=== PATIENT | male | born 1970 | race Two or more races ===

== ENCOUNTER 2025-02-11 13:29 | Inpatient (IN) | payer MEDICAID ==
[~2025-02-11] VITALS: Ht 180.3 cm; Wt 65.0 kg
--- NOTE | 2025-02-11 17:56 | Physician Documentation ---
History of Present Illness ~ Chief Complaint: Wound Stated Complaint: R FOOT PAIN Time Seen by MD: 23:13 HPI This is a 54-year-old male with a history of diabetes who presents with a wound to his right 5th toe present for proximally one-week patient reports that he initially stubbed his toe and the areas be come more painful and swollen over the last week. Patient reports no subjective fever. Patient reports no other acute symptoms or concerns. History as above. Medication Reconciliation Allergies: Coded Allergies: No Known Allergies (Unverified , 02/11/25) Scheduled Gabapentin (Gabapentin), 1 TAB PO BID, (Reported) Metformin Hcl* (Metformin ER*), 1 TAB PO BID, (Reported) Miscellaneous Medications Atorvastatin Calcium (Atorvastatin Calcium), (Reported) Insulin Aspart (Novolog), SQ, (Reported) Insulin Glargine,Hum.rec.anlog* (Lantus*), SQ, (Reported) [place] Carbonate ([place] Carbonate), (Reported) Lumateperone Tosylate (Caplyta), (Reported) Review of Systems ROS As stated above in the HPI, otherwise all systems are reviewed and negative. Physical Exam Vital Signs: Temperature: 97.7, Source: Temporal, Heart Rate: 86, Respiratory Rate: 16, BP: 123/81, Pulse Oximetry: 100, Weight: 65.050 Physical Exam General: Patient is awake, alert, oriented x4 in no acute distress Head: Normocephalic and atraumatic. Eyes: Conjunctival normal. EOMI. PERRL. ENT: Mucous membranes moist. Neck: Supple, trachea is midline. Chest: Clear to auscultation bilaterally without rales, rhonchi, or wheezes. There is no accessory muscle use or retractions. Cardiac: RRR without murmurs, gallops, or rubs. Abd: Soft, nondistended, nontender, with normoactive bowel sounds. No guarding, rebound, or rigidity. Extremities: Normal strength. Normal range of motion. Significant infection to patient's right 5th digit with associated ecchymosis, purulent drainage and cellulitis to the mid foot. Progress Results/Orders Results/Orders Orders - TAIWO IZAGUIRRE MD Page Hospitalist (02/11/25 23:19) Fill Out Med Reconciliation (02/11/25 23:19) Ct Lower Extremity (02/11/25 23:19) Vancomycin/Ns 1 Gm Add-[place] (Vancomyc (02/12/25 00:05) Completed Orders - TAIWO IZAGUIRRE MD Ceftriaxone/H5r-Ragcxeta 1gm (Rocephin 1 (02/11/25 23:20) Vancomycin Inj (Vancomycin Inj) (02/11/25 23:18) Normal Saline 1000ml (0.9% Sodium Chlori (02/11/25 23:20) Ct Lower Extremity (02/11/25 23:19) Iohexol 300mg/Ml 100ml Inj. (Omnipaque-3 (02/11/25 23:35) Medications Received in ER Medications (Trade) Dose Ordered Sig/Elliott Route PRN Reason Start Time Stop Time Status Last Admin Dose Admin Ceftriaxone Sodium 50 ml @ 100 mls/hr ONCE ONCE IV 02/11/25 23:20 02/11/25 23:49 DC 02/12/25 00:10 100 MLS/HR Sodium Chloride 1,000 ml @ 1,000 mls/hr ONCE ONCE IV 02/11/25 23:20 02/12/25 00:19 DC 02/12/25 00:11 1,000 MLS/HR Vancomycin HCl 250 ml @ 166 mls/hr ONCE ONCE IV 02/12/25 00:05 02/12/25 01:35 02/12/25 00:45 166 MLS/HR Vital Signs 02/11/25 02/11/25 02/11/25 02/11/25 13:46 22:13 23:23 23:25 Temp 97.7 98.3 Pulse 86 99 89 Resp 16 20 18 16 B/P (MAP) 123/81 159/86 (110) Pulse Ox 100 99 100 02/12/25 01:01 Pulse 92 Resp 16 B/P (MAP) 153/76 (101) Pulse Ox 100 Laboratory Tests Test 02/11/25 19:10 White Blood Count 10.5 Red Blood Count 4.44 L Hemoglobin 13.8 L Hematocrit 39.6 L Mean Corpuscular Volume 89.2 Mean Corpuscular Hemoglobin 31.2 H Mean Corpuscular Hemoglobin Concent 35.0 Red Cell Distribution Width 13.8 Platelet Count 366 Mean Platelet Volume 6.1 L Neutrophils (%) (Auto) 86.7 H Lymphocytes (%) (Auto) 6.6 L Monocytes (%) (Auto) 5.3 Eosinophils (%) (Auto) 1.0 Basophils (%) (Auto) 0.4 Neutrophils # (Auto) 9.1 H Lymphocytes # (Auto) 0.7 L Monocytes # (Auto) 0.6 Eosinophils # (Auto) 0.1 Basophils # (Auto) 0.0 CBC Comment Sodium Level 136 Potassium Level 3.7 Chloride Level 99 Carbon Dioxide Level 29.8 Anion Gap 7 L Blood Urea Nitrogen 9 Creatinine 1.23 H Estimated GFR/1.73 m2 61 BUN/Creatinine Ratio 7.3 L Glucose Level 190 H Hemoglobin A1c 7.4 H Calcium Level 9.6 Albumin 3.5 Procalcitonin 0.06 Chemistry Comments EKG/XRAY/CT/US/VASC/MRI Bone/Soft Tissue X-Ray (Ext.) : Additional Comment Exam: FOOT, COMPLETE (3VW MIN) Indication: FOOT PAIN RIGHT Technique: DI FOOT, COMPLETE (3VW MIN)FOOT CPLT Comparison: None FINDINGS/IMPRESSION: No radiographic evidence for acute fracture or dislocation. Dorsal right foot soft tissue edema. Wcyo-ky-flprhydp degenerate changes 1st MTP joint. Mild degenerate changes of the PIP and D IP joints. Atherosclerotic calcification disease. Medical Decision Making Findings Patient presented to the emergency room with toe pain as per HPI. Differentials include but are not limited to fractures, abscess, osteomyelitis, sepsis, cellulitis therefore emergent labs and imaging indicated. Labs are reassuring however patient's physical exam is concerning given patient's history of diabetes consider very high risk for amputation. I do not believe he would do well on outpatient basis therefore IV antibiotics initiated and CT scan ordered. Departure Admitted to Inpatient Unit: yes, to hospitalist Impression: Primary Impression: Wound cellulitis Additional Impressions: Wound abscess Diabetes Condition: Guarded Referrals: NO PRIMARY CARE PROVIDER (PCP) Signature Scribe Signature: No scribe Attestation: The note accurately reflects work and decisions made by me.Taiwo Izaguirre MD 02/11/25 23:26 CHARLEY DEY Feb 11, 2025 17:56 TAIWO IZAGUIRRE MD Feb 11, 2025 23:26
--- NOTE | 2025-02-11 18:27 | RADIOLOGY REPORT ---
Indication: FOOT PAIN RIGHT Technique: DI FOOT, COMPLETE (3VW MIN)FOOT CPLT Comparison: None FINDINGS/IMPRESSION: No radiographic evidence for acute fracture or dislocation. Dorsal right foot soft tissue edema. Qggf-cd-fgpmtmnu degenerate changes 1st MTP joint. Mild degenerate changes of the PIP and D IP joint s. Atherosclerotic calcification disease.
[2025-02-11 19:25] LABS: MEAN PLATELET VOLUME 6.1 FL (7.4-10.4); RED CELL DISTRIBUTION WIDTH 13.8 % (11.5-14.5)
[2025-02-11 19:30] LABS: CREATININE 1.23 MG/DL (0.60-1.10); TOTAL CARBON DIOXIDE 29.8 MMOL/L (24-32); eCRCL 62 ML/MIN; eGFR 61 ML/MIN
[2025-02-11] MEDS ORDERED: vancomycin inj 1,000 MG in normal saline 250ml IV soln 250 ML IV STA (23:18)
[2025-02-11] MEDS ORDERED: iohexol 300mg/ml 100ml inj. ONE (23:35)
[2025-02-12] VITALS (7 sets, daily range): BP systolic 127–172; BP diastolic 63–99; PULSE 81–92; RESP 15–22; TEMP 97.5–99.3; O2SAT 97–100
[2025-02-12] MEDS: CefTRIAXone/D5W-Rocephin 1gm 50 ML IV ONE (00:10)
[2025-02-12] MEDS: normal saline 1000ml 1,000 ML IV ONE (00:11)
[2025-02-12] MEDS ORDERED: magnesium Cl slow-release 64mg tablet PO PRN (00:45)
[2025-02-12] MEDS ORDERED: magnesium sulf-water 2g/50mL 50 ML IV PRN (00:45)
[2025-02-12] MEDS ORDERED: magnesium sulf-water 4G/100mL 100 ML IV PRN (00:45)
[2025-02-12] MEDS ORDERED: ondansetron/PF 4mg/2ml inj IV PRN (00:45)
[2025-02-12] MEDS ORDERED: mag hydrox/Alum hydrox/simeth 30ml oral suspension PO PRN (00:45)
[2025-02-12] MEDS ORDERED: potassium Cl 40MEQ/1/2NS 520ml 520 ML IV PRN (00:45)
[2025-02-12] MEDS ORDERED: potassium Cl 20 mEq SR tablet PO PRN ×2 (00:45)
[2025-02-12] MEDS: vancomycin/NS 1 GM ADD-VANTAGE 250 ML IV ONE (00:45)
[2025-02-12] MEDS ORDERED: METF-900 PO (01:01)
[2025-02-12] MEDS ORDERED: LITH300T5 PO (01:01)
[2025-02-12] MEDS ORDERED: ATOR40TA72 (01:01)
[2025-02-12] MEDS ORDERED: LANTUS SQ (01:01)
[2025-02-12] MEDS ORDERED: GABA-1555 PO (01:01)
[2025-02-12] MEDS ORDERED: NOVLG SQ (01:01)
[2025-02-12] MEDS ORDERED: LUMA21CA PO (01:01)
[2025-02-12] MEDS: CefTRIAXone/D5W-Rocephin 1gm 50 ML IV SCH ×2 (01:45→23:49)
[2025-02-12 02:19] LABS: LEUKOCYTE ESTERASE ,URINE MODERATE (Neg); NITRITES, URINE NEGATIVE (Neg); OCCULT BLOOD,URINE TRACE-INTACT (Neg)
[2025-02-12 02:21] LABS: URINE AMPHETAMINE SCREEN POSITIVE (Neg); URINE BARBITUATE SCREEN NEGATIVE (Neg); URINE BENZODIAZEPINES SCREEN NEGATIVE (Neg); URINE CANNABINOID SCREEN NEGATIVE (Neg); URINE COCAINE SCREEN NEGATIVE (Neg); URINE METHADONE SCREEN NEGATIVE (Neg); URINE OPIATE SCREEN NEGATIVE (Neg); URINE PHENCYCLIDINE SCREEN NEGATIVE (Neg)
[2025-02-12 02:27] LABS: UA COLLECTION TYPE URINAL
[2025-02-12] MEDS: HYDROcodone/acetaminophen 5mg/325mg tablet PO PRN (02:32)
[2025-02-12] MEDS: normal saline 1000ml 1,000 ML IV SCH ×2 (02:32→04:00)
[2025-02-12 02:42] LABS: SQUAMOUS EPITHELIAL CELL,UR FEW /LPF (FEW)
[2025-02-12 02:43] LABS: WBC CLUMPS,URINE MODERATE /HPF (NEGATIVE)
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
[2025-02-12] MEDS ORDERED: DEXTROSE 15 GM of carb/4 tabs (each vial/BOTTLE has 4 tablets) PO PRN (03:35)
[2025-02-12] MEDS ORDERED: glucagon, human recombinant 1mg kit SUBCUT PRN (03:35)
[2025-02-12] MEDS ORDERED: dextrose 50%-water 50ml dispensing syringe IV PRN ×2 (03:35)
--- NOTE | 2025-02-12 04:23 | RADIOLOGY REPORT ---
INDICATION: infection COMPARISON: DI FOOT, COMPLETE (3VW MIN) on DOS: 02/11/25 TECHNIQUE: CT of the right foot was performed with contrast. Volume transverse images were obtained a nd reconstructed in multiple planes using bone and soft tissue algorithms. Radiation Dose Information: CT Dose: CTDI volume is 7.62 mGy. Dose-length product is 521.67 mGy*cm FINDINGS: Moderate to severe diffuse soft tissue edema and swelling. No definite evidence of organized fluid co llection to suggest abscess formation. Normal vascular enhancement. Atherosclerotic vascular calcifi cations. No evidence of cortical disruption or erosion to suggest sequelae of osteomyelitis. The alignment is normal. The joint spaces are normal. There is no fracture, dislocation or aggressive osseous lesion. There is no joint effusion. IMPRESSION: 1. Moderate to severe diffuse soft tissue edema and swelling without definite evidence of organized f luid collection to suggest abscess formation. 2. No CT evidence of osteomyelitis or acute osseous abnormality. 3. All CT scans at this medical facility are performed using dose modulation techniques as appropriat e to a performed exam including the following: Automated exposure control was utilized; adjustment of the MA and/or KV according to patient size; and use of iterative reconstruction technique.
[2025-02-12 05:38] LABS: CHOL/HDL RATIO 2.4 (0.00-4.99); LDL CHOLESTEROL 39 MG/DL (50-100)
[2025-02-12] MEDS: INSULIN LISPRO 100 UNIT/ML INSULN.PEN MULTI-DOSE SQ SCH ×2 (07:00→09:00)
[2025-02-12] MEDS: K and/or MAG REPLACEMENT MC SCH (08:00)
[2025-02-12] MEDS: docusate sod 100mg capsule PO SCH (08:41)
[2025-02-12] MEDS: heparin, porcine 5000 units/ml vial SQ SCH (08:43)
--- NOTE | 2025-02-12 11:11 | RADIOLOGY REPORT ---
DI CHEST,TWO VIEWS CLINICAL HISTORY: pain in ribs COMPARISON: None TECHNIQUE: Frontal and lateral view of the chest was obtained FINDINGS: Lines and Tubes: None Lungs: No focal consolidation. Pleura: No effusion. No pneumothorax. Cardiomediastinal contours: Unremarkable Bones: No acute osseous abnormality. IMPRESSION: No acute cardiopulmonary disease.
--- NOTE | 2025-02-12 11:36 | VASCULAR REPORT ---
EXAM: VASC VL LOUIS ANKLE/BRACHIAL INDEX CLINICAL HISTORY: Right toe wound Peripheral vascular disease COMPARISON: DI FOOT, COMPLETE (3VW MIN) on DOS: 02/11/25, CT CT LOWER EXTREMITY W/ IV CONTRAST on DOS: 02/11/25 TECHNIQUE: Bilateral systolic ankle and brachial pressures are obtained, with ankle pulse volume waveforms and i ndices. FINDINGS: Pressures: Right Left Brachial 140 mmHg IV mmHg PT noncompressible mmHg noncompressible mmHg DP 170 mmHg 180 mmHg LOUIS: Right Left 1.2 1.3 Pulse volume waveforms: Multiphasic IMPRESSION: Right LOUIS, 1.2. Normal LOUIS. Left LOUIS, 1.3 suggesting possible medial arterial calcification. 1.0-1.4: normal 0.91-0.99 borderline 0.9: abnormal (i.e. PAD) 0.4-0.9: plih-pb-xwegowce PAD <0.4: suggestive of severe PAD
--- NOTE | 2025-02-12 12:05 | VASCULAR REPORT ---
Indication: 5th right toe wound Technique: Real- time ultrasound images of the bilateral lower extremity with grayscale, color, and spectral wave Doppler. Comparison: None Findings: Biphasic/ triphasic waveforms in the right CENTER MGR, SFA, popliteal arteries. Monophasic waveform in the d istal right anterior tibial , posterior tibial artery. Biphasic / triphasic waveforms left CENTER MGR, SFA, popliteal, posterior tibial, anterior tibial arteries. Scattered atherosclerotic calcification dise ase. Peak systolic velocities are as follows (in cm/s): Right: Common femoral artery: 192 Profunda femoris: 109 Proximal superficial femoral: 131 Mid superficial femoral artery: 169 Distal superficial femoral artery: 134 Popliteal artery: 134 Posterior tibial artery: 175 Anterior tibial artery: 184 Left: Common femoral artery: 166 Profunda femoris: 102 Proximal superficial femoral: 121 Mid superficial femoral artery: 169 Distal superficial femoral artery: 121 Popliteal artery: 103 Posterior tibial artery: 140 Anterior tibial artery: 127 Impression: Mgte-qb-dtrujjog peripheral arterial disease. Scattered atherosclerotic plaque. Monophasic waveform and increased velocity in the right anterior tibial, posterior tibial arteries wh ich ,ay suggest hemodynamically significant stenosis. Recommend vascular surgery consultation for fu rther evaluation given patient's underlying wound and evaluation for revascularization.
[2025-02-12] MEDS: vancomycin/NS 1 GM ADD-VANTAGE 250 ML IV SCH (14:46)
--- NOTE | 2025-02-12 15:16 | RADIOLOGY REPORT ---
CLINICAL HISTORY: Foot wound. TECHNIQUE: Multi sequence multi planar MRI images of the right midfoot and forefoot were obtained wi thout IV contrast. COMPARISON: CT CT LOWER EXTREMITY W/ IV CONTRAST on DOS: 02/11/25, DI FOOT, COMPLETE (3VW MIN) on DOS: 02/11/25 FINDINGS: Puhpgwwo-vo-lpyhcn subcutaneous edema throughout the midfoot and forefoot, most prominent of the dorsal aspect of the midfoot and forefoot. There is slightly more focal subcutaneous edema in the 5th digit with mild skin deformity at its distal aspect, possible wound. No organized fluid colle ction identified to suggest abscess. There is patchy marrow edema of the distal phalanx of the 5th di git, including areas of T1 hypointense signal. Early changes associated with osteomyelitis can not be excluded. No signal abnormality in the proximal or middle phalanges of the 5th digit to suggest oste omyelitis. No other evidence for osteomyelitis in the midfoot or forefoot. Moderate fatty atrophy of the intrinsic musculature of the forefoot. IMPRESSION: 1. Moderate to marked subcutaneous edema throughout the midfoot and forefoot, which is nonspecific, b ut may be seen with cellulitis in the appropriate clinical setting. 2. More focal area of subcutaneous edema in the 5th digit with possible wound at its distal aspect. N o organized fluid collection identified to suggest abscess. 3. Marrow signal changes of the distal phalanx of the 5th digit, can not exclude early osteomyelitis as described above. No other evidence for osteomyelitis in the midfoot or forefoot.
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
[2025-02-12] MEDS: insulin glargine (Lantus) pen - multi-dose SQ SCH (20:49)
[2025-02-12] MEDS ORDERED: insulin glargine (Lantus) pen - multi-dose SQ SCH (21:00)
[2025-02-13 06:00] LABS: MEAN PLATELET VOLUME 6.2 FL (7.4-10.4); RED CELL DISTRIBUTION WIDTH 13.9 % (11.5-14.5)
[2025-02-13 06:16] LABS: APTT 29 SECONDS (22-32); INR 1.0 INR
[2025-02-13 06:44] LABS: CREATININE 1.09 MG/DL (0.60-1.10); PHOSPHORUS 3.1 MG/DL (2.3-4.5); TOTAL CARBON DIOXIDE 24.9 MMOL/L (24-32); eCRCL 70 ML/MIN; eGFR 70 ML/MIN
[2025-02-13] MEDS: pantoprazole 40mg Tablet.DR PO SCH (08:16)
[2025-02-13] MEDS: INSULIN LISPRO 100 UNIT/ML INSULN.PEN MULTI-DOSE SQ SCH (13:05)
[2025-02-13] MEDS: VANCOMYCIN LEVEL IV ONE (13:17)
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
[2025-02-13 18:00] VITALS: BP 166/91; PULSE 98; RESP 14; TEMP 99.3; O2SAT 99
[2025-02-13 18:42] VITALS: RESP 14; O2SAT 99
[2025-02-13] MEDS: insulin glargine (Lantus) pen - multi-dose SQ SCH (20:03)
[2025-02-13 21:40] VITALS: BP_SYST 171; BP_SYST 184; BP_DIAS 91; BP_DIAS 92; PULSE 104; PULSE 105
[2025-02-13 22:00] VITALS: PULSE 111; RESP 17; TEMP 100.8; O2SAT 97
[2025-02-13] MEDS: hydrALAZINE 20mg/ml inj. IV ONE (22:40)
[2025-02-14] VITALS (7 sets, daily range): BP systolic 117–158; BP diastolic 58–85; PULSE 79–104; RESP 16–18; TEMP 98.1–99.4; O2SAT 97–98
[2025-02-14] MEDS: VANCOMYCIN/WATER FOR INJ (PEG) 1.5GM/300 ML IVPB IV SCH (00:10)
[2025-02-14 05:56] LABS: MEAN PLATELET VOLUME 6.3 FL (7.4-10.4); RED CELL DISTRIBUTION WIDTH 14.1 % (11.5-14.5)
[2025-02-14 06:05] LABS: APTT 33 SECONDS (22-32); INR 1.1 INR
[2025-02-14 06:16] LABS: CREATININE 0.95 MG/DL (0.60-1.10); PHOSPHORUS 3.4 MG/DL (2.3-4.5); TOTAL CARBON DIOXIDE 23.8 MMOL/L (24-32); eCRCL 80 ML/MIN; eGFR 82 ML/MIN
[2025-02-14 07:22] LABS: LEUKOCYTE ESTERASE ,URINE NEGATIVE (Neg); OCCULT BLOOD,URINE NEGATIVE (Neg)
[2025-02-14 07:35] LABS: NITRITES, URINE NEGATIVE (Neg)
[2025-02-14 07:36] LABS: UA COLLECTION TYPE CLN CATCH MIDSTREAM
[2025-02-14] MEDS ORDERED: CefTRIAXone 2gm/D5W 50ml BAG 50 ML IV SCH (08:00)
[2025-02-14 08:39] LABS: CREATININE,URINE RANDOM 11.0 MG/DL; TOTAL PROTEIN,URINE RANDOM 9.7 MG/DL; UA UREA RANDOM 100.0 MG/DL
[2025-02-14 09:07] LABS: OSMOLALITY UA 153.0 MOSM/K (50-1400)
[2025-02-14] MEDS: ceFAZolin/D5W- 1GM premix 50 ML IV SCH (15:31)
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
[2025-02-14] MEDS: ceFAZolin/D5W- 1GM premix 50 ML IV ONE (23:22)
[2025-02-15 06:00] VITALS: BP 142/79; PULSE 98; RESP 20; TEMP 100.1; O2SAT 97
[2025-02-15 06:02] LABS: MEAN PLATELET VOLUME 6.1 FL (7.4-10.4); RED CELL DISTRIBUTION WIDTH 13.9 % (11.5-14.5)
[2025-02-15 06:13] LABS: APTT 33 SECONDS (22-32); INR 1.1 INR
[2025-02-15 06:25] LABS: CREATININE 1.16 MG/DL (0.60-1.10); PHOSPHORUS 3.5 MG/DL (2.3-4.5); TOTAL CARBON DIOXIDE 24.4 MMOL/L (24-32); eCRCL 65 ML/MIN; eGFR 65 ML/MIN
[2025-02-15] MEDS: LUMATEPERONE TOSYLATE 21 MG PO SCH (08:00)
[2025-02-15] MEDS: magnesium hydroxide 30ml (MOM) UD suspension PO PRN (08:46)
[2025-02-15 10:00] VITALS: BP 142/67; PULSE 89; RESP 14; TEMP 98.5; O2SAT 97
[2025-02-15] MEDS ORDERED: VANCOMYCIN LEVEL IV ONE (12:30)
[2025-02-15] MEDS ORDERED: DEXTROSE 15 GM of carb/4 tabs (each vial/BOTTLE has 4 tablets) PO PRN ×2 (12:55)
[2025-02-15] MEDS ORDERED: glucagon, human recombinant 1mg kit SUBCUT PRN (12:55)
[2025-02-15] MEDS ORDERED: dextrose 50%-water 50ml dispensing syringe IV PRN ×2 (12:55)
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
[2025-02-15] MEDS: ceFAZolin 2gm/dext,iso 50mL 50 ML IV SCH (16:08)
[2025-02-15] MEDS: INSULIN LISPRO 100 UNIT/ML INSULN.PEN MULTI-DOSE SQ SCH (17:25)
[2025-02-15 18:00] VITALS: BP 143/88; PULSE 79; RESP 16; TEMP 97.8; O2SAT 98
--- NOTE | 2025-02-15 18:36 | CONSULTATION REPORT ---
Consult Providers to CC Right 5th toe wound History of Present Illness Reason for Admit\Complaint: Right 5th toe wound History of Present Illness 54yo Male with DMII who presented to the ED for a right 5th toe wound. He states he stubbed his toe on 02/07/25 and got a blister. 2 days later he drained the blister. He thought it would heal on its own. He states he has had other wounds on his feet that have healed without treatment from a doctor. He started soaking the foot in warm water with epsom salts and states that made it worse. He admits subjective fever and chills for the last few days. He states that he lives in [place] but was here to help move his 84yo mother. He expresses fears of losing his foot. He admits pain to his right foot. Allergies: Coded Allergies: No Known Allergies (Unverified , 02/11/25) Home Medications Home Medications Active Reported Metformin ER* (Metformin HCl) 500 Mg Tab.sr.24h 1 Tab PO BID Gabapentin 800 Mg Tablet 1 Tab PO BID Caplyta (Lumateperone Tosylate) 21 Mg Capsule 1 Cap PO DAILY Lantus* (Insulin Glargine) 100 Unit/1 Ml Vial SQ Atorvastatin Calcium 40 Mg Tablet [place] Carbonate 300 Mg Tablet 900 Mg PO HS Novolog (Insulin Aspart) 100 Unit/Ml (3 Ml) Insuln.pen SQ Family History Family History: FH: diabetes mellitus (dad, mom, sisters and brother) Exam Vitals: Vital Signs Date Time Temp Pulse Resp B/P (MAP) Pulse Ox O2 Delivery O2 Flow Rate FiO2 02/15/25 10:00 98.5 89 14 142/67 (92) 97 Room Air Extremities: Vasc: DP/PT pulses palpable. Pedal hair is present. Cap refill >5 seconds to the right 5th toe. Neuro: Diminished light touch sensation. + paraesthesias right foot. Derm: Significant erythema, edema, warmth and purulent drainage from multiple wounds on the right 5th toe with surrounding erythema, edema, and warmth extending to the dorsal hindfoot. There is significant maceration and skin sloughing. Right 5th toenail is lysed from the nail plate. Msk: POP right 5th toe Diagnostic Data Last Recorded Lab Results: 02/15/25 0543 02/15/2543 Diagnostic Data: Laboratory Tests Test 02/15/25 05:43 Prothrombin Time 11.1 SECONDS (9.0-12.0) INR International Normalized Ratio 1.1 INR Activated Partial Thromboplast Time 33 SECONDS (22-32) H Coagulation Comments Additional Plan Right 5th toe abscess/cellulitis with concern for early osteomyelitis DMII with PN -Patient seen and evaluated at bedside. Chart and imaging reviewed, likely early osteomyelitis on MRI. Lengthy discussion had with patient regarding the infection to his toe. Discussed that an infection that severe to his toe is unlikely to resolve with abx alone and given his fear of losing more of his foot, the recommendation would be to proceed with right 5th toe amputation to obtain source control. The patient is amenable to this plan. -Continue IV abx per ID -Continue daily dressing changes to RLE. Dressed tonight with betadine, saline moistened gauze, dry gauze, kerlix and tape -Plan for Right 5th toe amputation on 02/17/[address] Marty Das. Case was discussed with him as well. -NPO midnight night prior. Please reach out to our team with questions or concerns. [place] ALLEN DPM Feb 15, 2025 18:36
--- NOTE | 2025-02-15 18:53 | CONSULTATION REPORT - RESIDENT ---
Consult Providers to CC Resident Creating Document: ALYSSA SILVER RES History of Present Illness Reason for Admit\Complaint: Possible osteomyelitis History of Present Illness 54 years old male with history of peripheral arterial disease, uncontrolled diabetes mellitus, bipolar, psychiatric disorder, methamphetamine abuse, presented to the ED with bluish/purplish right toe. He reported he injured his toe to three days ago, and experiencing progressive swelling and discoloration. He also reported severe associated pain which exacerbated with weight-bearing and movement. He denied fever chills shortness of breaths. During hospitalization ESR was elevated and MRI was concerning for early stage of osteomyelitis. Infectious disease specialist was consulted for evaluation of osteomyelitis. Allergies: Coded Allergies: No Known Allergies (Unverified , 02/11/25) Home Medications Home Medications Active Reported Metformin ER* (Metformin HCl) 500 Mg Tab.sr.24h 1 Tab PO BID Gabapentin 800 Mg Tablet 1 Tab PO BID Caplyta (Lumateperone Tosylate) 21 Mg Capsule 1 Cap PO DAILY Lantus* (Insulin Glargine) 100 Unit/1 Ml Vial SQ Atorvastatin Calcium 40 Mg Tablet [place] Carbonate 300 Mg Tablet 900 Mg PO HS Novolog (Insulin Aspart) 100 Unit/Ml (3 Ml) Insuln.pen SQ Past Medical History Past Medical History Uncontrolled diabetes mellitus Peripheral arterial disease Methamphetamine abuse Bipolar/psychiatric disorder Past Surgical History Surgical History Comment Right knee replacement Family History Family History: FH: diabetes mellitus (dad, mom, sisters and brother) Past Social History Social History Comment As patient report patient quit smoking 20 years ago He denies methamphetamine abuse, however urine tox is positive for methamphetamine Reported drink alcohol twice a month Exam Vitals: Vital Signs Date Time Temp Pulse Resp B/P (MAP) Pulse Ox O2 Delivery O2 Flow Rate FiO2 02/15/25 18:00 97.8 79 16 143/88 (106) 98 Room Air General: General: Awake and Alert, no acute distress. HEENT: Conjunctiva pink, Sclera clear, Mucus Membranes moist. Neck: Supple without masses and tenderness. Resp: Lungs clear to auscultation bilaterally. Heart: Regular Rate and rhythm, normal S1 and S2 without murmur, rub or gallop. Abdomen: Soft and non tender no organomegaly Extremities: Right 5th toe: purplish, extensive swelling extended to the dorsum of the foot with lots of pus drainage, , erythema of the dorsum and sole of foot present Skin: Warm and Dry. Neurological: Speech is clear, alert, and oriented x 4, decreased sensation bilateral foot Diagnostic Data Last Recorded Lab Results: 02/15/25 0543 02/15/25 0543 Diagnostic Data: Laboratory Tests Test 02/15/25 05:43 Prothrombin Time 11.1 SECONDS (9.0-12.0) INR International Normalized Ratio 1.1 INR Activated Partial Thromboplast Time 33 SECONDS (22-32) H Coagulation Comments Additional Plan 54 years old male patient with history of peripheral arterial disease, uncontrolled diabetes mellitus, methamphetamine abuse came to the hospital with chief complaint of secretion of pus in the right 5th toe. Osteomyelitis of 5th toe Diabetic foot infection Elevated ESR MRI showed: Suspected early stage of osteomyelitis of the distal phalanx of the 5th digit Culture showed: MSSA Blood culture negative Plan for Right 5th toe amputation on 02/17/[address] Marty Das. Continue metronidazole, cefazolin increase dose to 2 g q8h We will continue following patient Peripheral arterial disease Vascular ultrasound: Nanc-nb-[id number] peripheral arterial disease. Scattered atherosclerotic plaque. Qrzo-di-kohdjkfa peripheral arterial disease. Scattered atherosclerotic plaque. Monophasic waveform and increased velocity in the right anterior tibial, posterior tibial arteries which ,may suggest hemodynamically significant stenosis. Arterial ultrasound Right LOUIS, 1.2. Normal LOUIS.Left LOUIS, 1.3 suggesting possible medial arterial calcification. Follow up outpatient Alyssa Silver MD Infectious disease consult Date of Service: Feb 15, 2025 Billing Provider: SEN GARCIA MD, ELAHE, RES Feb 15, 2025 18:52
[2025-02-15] MEDS: insulin glargine (Lantus) pen - multi-dose SQ SCH (20:27)
[2025-02-15 22:42] VITALS: BP 139/71; PULSE 88; RESP 16; TEMP 97.6; O2SAT 99
--- NOTE | 2025-02-15 23:17 | CONSULTATION REPORT ---
Consult Consult Consultation Patient seen and examined with Dr. Silver. Agree with her note. Pt admitted with right diabetic foot infection. HgbA1c 7.4%. Infection centered at right 5th toe but erythema involves dorsal aspect of foot. Foot appears to be fairly well perfused and US studies noted. MSSA on culture. 5th toe to be amputated but needs ongoing abx treatment for foot. Cefazolin and metronidazole to continue. If failing to heal, will need to consider additional gram-negative coverage and CT angiography RLE. SEN GARCIA MD Feb 15, 2025 23:17
[2025-02-16 05:40] LABS: MEAN PLATELET VOLUME 6.1 FL (7.4-10.4); RED CELL DISTRIBUTION WIDTH 14.1 % (11.5-14.5)
[2025-02-16 05:44] LABS: INR 1.1 INR
[2025-02-16 05:46] LABS: CREATININE 1.18 MG/DL (0.60-1.10); PHOSPHORUS 3.4 MG/DL (2.3-4.5); TOTAL CARBON DIOXIDE 26.1 MMOL/L (24-32); eCRCL 64 ML/MIN; eGFR 64 ML/MIN
[2025-02-16 06:00] VITALS: BP 135/81; PULSE 96; RESP 16; TEMP 97.2; O2SAT 100
[2025-02-16 10:00] VITALS: BP 123/75; PULSE 86; RESP 14; TEMP 97.6; O2SAT 98
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
--- NOTE | 2025-02-16 16:17 | PROGRESS NOTE- Residence ---
Progress Note - Resident Providers to CC Resident Creating Document: ALYSSA SILVER RES ~ Antibiotic Timeout Antibiotic Ordered?: Yes Subjective Patient seen and examined at the bedside, pain is controlled with medication, she is scheduled for Right 5th toe amputation on 02/17/[address] Marty Das Objective Vital Signs Date Time Temp Pulse Resp B/P (MAP) Pulse Ox O2 Delivery O2 Flow Rate FiO2 02/16/25 10:00 97.6 86 14 123/75 (91) 98 Room Air Result Diagram: 02/16/25 0444 02/16/25 0444 General: Awake and Alert, no acute distress. HEENT: Conjunctiva pink, Sclera clear, Mucus Membranes moist. Neck: Supple without masses and tenderness. Resp: Lungs clear to auscultation bilaterally. Heart: Regular Rate and rhythm, normal S1 and S2 Abdomen: Soft and non tender no organomegaly Extremities: Right 5th toe purplish, with medium amount of bloody/pus drainage, , erythema of the dorsum and sole of foot present Skin: Warm and Dry. Neurological: Speech is clear, alert, and oriented x 4, no gross neurological deficits Coagulation Studies Laboratory Tests Test 02/15/25 05:43 02/16/25 04:44 Activated Partial Thromboplast Time 33 SECONDS (22-32) H Prothrombin Time 11.0 SECONDS (9.0-12.0) INR International Normalized Ratio 1.1 INR Coagulation Comments Assessment Assessment 54-year-old male with uncontrolled diabetes, right foot cellulitis with possible early 5th toe osteomyelitis, PAD, and MARY. Plan Plan Osteomyelitis of 5th toe Diabetic foot infection Elevated ESR, hemoglobin A1c 7.4 MRI showed: Suspected early stage of osteomyelitis of the distal phalanx of the 5th digit Culture showed: MSSA Blood culture negative Plan for Right 5th toe amputation on 02/17/[address] Marty Das. Continue metronidazole, cefazolin increase dose to 2 g q8h , If failing to heal, will need to consider additional gram-negative coverage and CT angiography RLE. We will continue following patient Peripheral arterial disease Vascular ultrasound: [id number] peripheral arterial disease. Scattered atherosclerotic plaque. Monophasic waveform and increased velocity in the right anterior tibial, posterior tibial arteries which ,may suggest hemodynamically significant stenosis. Arterial ultrasound Right LOUIS, 1.2. Normal LOUIS.Left LOUIS, 1.3 suggesting possible medial arterial calcification. Alyssa Silver MD Infectious diseases consult Agree with above note. Patient seen and examined. Discussed with Dr. Silver. Amputation tomorrow. Date of Service: Feb 16, 2025 Billing Provider: SEN GARCIA MD, ELAHE, RES Feb 16, 2025 16:17 SEN GARCIA MD Feb 16, 2025 18:39
[2025-02-16] MEDS ORDERED: HYDROmorphone/PF 0.2 MG/ML SYRINGE IV PRN (16:25)
[2025-02-16] MEDS ORDERED: labetalol 20mg/4ml (5mg/ml) syringe IV PRN (16:25)
[2025-02-16] MEDS ORDERED: hydrALAZINE 20mg/ml inj. IV PRN (16:25)
[2025-02-16] MEDS: ringers solution, lacted 1,000 ML IV SCH (16:25)
[2025-02-16] MEDS ORDERED: ondansetron/PF 4mg/2ml inj IV PRN (16:25)
[2025-02-16 18:30] VITALS: BP 133/78; PULSE 80; RESP 12; TEMP 98; O2SAT 100
[2025-02-16] MEDS: DEXTROSE 15 GM of carb/4 tabs (each vial/BOTTLE has 4 tablets) PO PRN (23:43)
[2025-02-17] VITALS (19 sets, daily range): BP systolic 110–148; BP diastolic 60–82; PULSE 61–84; RESP 11–20; TEMP 97.1–98.7; O2SAT 94–100
[2025-02-17 06:15] LABS: INR 1.1 INR; MEAN PLATELET VOLUME 6.0 FL (7.4-10.4); RED CELL DISTRIBUTION WIDTH 14.1 % (11.5-14.5)
[2025-02-17 06:20] LABS: CREATININE 1.19 MG/DL (0.60-1.10); PHOSPHORUS 4.2 MG/DL (2.3-4.5); TOTAL CARBON DIOXIDE 27.1 MMOL/L (24-32); eCRCL 64 ML/MIN; eGFR 63 ML/MIN
[2025-02-17] MEDS ORDERED: vancomycin 1,000mg inj ONE (12:16)
[2025-02-17] MEDS ORDERED: BUPIVAcaine/PF 2.5mg/ml (0.25%) 10ml vial ONE (12:37)
[2025-02-17] MEDS ORDERED: LIDOcaine 1% 30ml preserv. free vial ONE (12:38)
[2025-02-17] MEDS ORDERED: bacitracin 15gm ointment TP ONE (12:38)
[2025-02-17] MEDS: ringers solution, lacted 1,000 ML IV SCH (12:55)
[2025-02-17] MEDS ORDERED: labetalol 20mg/4ml (5mg/ml) syringe IV PRN (12:55)
[2025-02-17] MEDS ORDERED: fentaNYL/PF 50MCG/1 ML 2ML syringe IV PRN ×2 (12:55)
[2025-02-17] MEDS ORDERED: hydrALAZINE 20mg/ml inj. IV PRN (12:55)
[2025-02-17] MEDS ORDERED: ondansetron/PF 4mg/2ml inj IV PRN (12:55)
[2025-02-17] MEDS ORDERED: morphine 4 MG/ML inj SYRINge IV PRN (12:55)
[2025-02-17] MEDS ORDERED: fentaNYL/PF 50MCG/1 ML 2ML syringe ONE ×2 (13:52→14:16)
[2025-02-17] MEDS ORDERED: propofol inj 20 ML IV ONE (13:53)
[2025-02-17] MEDS ORDERED: midazolam 1 mg/ML 2ml injection ONE (13:53)
[2025-02-17] MEDS ORDERED: LIDOcaine 1%/PF 5ML 10 MG/ML VIAL ONE (13:53)
[2025-02-17] MEDS ORDERED: ondansetron/PF 4mg/2ml inj ONE (14:00)
--- NOTE | 2025-02-17 14:04 | ELECTROCARDIOGRAPH REPORT ---
[facility] Test Date: 2025-02-17 Test Time: 13:49:03 Pat Name: RADHA HAQUE Department: PRE/OP CARDIOLOGY Room: [facility] A Gender: M [employer] Representatives: : 1970 Requested By: JOSE ISSA Order Number: [id number] Reading MD: Dr. MILAN Berrios Measurements Intervals [place] Rate: 85 P: -2 GA: 155 QRS: -2 QRSD: 79 T: 49 QT: 384 QTc: 457 Interpretive Statements Sinus rhythm Electronically Signed On 02-17-2025 19:18:[address] MILAN Berrios Please click the below link to view image of tracing.
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
[2025-02-17] MEDS ORDERED: PCA WASTE DOCUMENTATION 1 MG ML MC SCH (14:40)
--- NOTE | 2025-02-17 14:43 | PROGRESS NOTE ---
Progress Progress Note: Patient S/P partial 5th ray resection POD#0 Clear margins obtained, incision site closed - wound care consult placed - betadine wet to dry dressing QD abx per medicine/ID ok for outpatient follow-up once medically stable Exam Exam S/P partial 5th ray resection Results/Orders Result Diagram: 02/17/2552602/17/25526 Dietary Evaluation Recommendations by RD: Other - see comments Comments: II 02/21 +wndDM^prodn F/u 02/15: Pt PO ~78% avg initial 75g carb controlled meals meeting estimated needs. Noted Glu 234-244mg/dl down from 300's yesterday not receiving meal coverage insulin as part of glycemic protocol; TANYA TC w/ RN who reports MD plans to add after rounds this AM. LBM 02/13 per EMR. Will continue to follow. Rec: 1. continue 75g carb controlled diet; encourage PO 2. routine bowel regimen 3. weekly wt Expected Outcomes/Goals: maintain stable wt, meet at least ~75% estimated nutrient needs, bowel regularity, wound healing, Glu 80-180mg/dl OTTO SALGADO DPM Feb 17, 2025 14:43
[2025-02-17] MEDS: morphine 4 MG/ML inj SYRINge IV PRN (15:03)
[2025-02-17] MEDS: insulin regular, human 10 units/0.1 ml syringe IV ONE (15:04)
[2025-02-17] MEDS: HYDROmorphone/PF 0.2 MG/ML SYRINGE IV PRN (15:18)
[2025-02-17] MEDS: acetaminophen 1,000mg/100ml IV 100 ML IV PRN (15:19)
[2025-02-17] MEDS: normal saline 1000ml 1,000 ML IV SCH (16:26)
[2025-02-17] MEDS ORDERED: insulin regular, human U-100 10ml vial - multi-dose IV ONE (21:00)
[2025-02-17] MEDS ORDERED: INSULIN LISPRO 100 UNIT/ML INSULN.PEN MULTI-DOSE SQ ONE (21:35)
[2025-02-17] MEDS: INSULIN LISPRO 100 UNIT/ML INSULN.PEN MULTI-DOSE SQ ONE (21:50)
[2025-02-18 02:00] VITALS: BP 131/79; PULSE 88; RESP 17; TEMP 97.4; O2SAT 99
[2025-02-18 06:00] VITALS: BP 120/73; PULSE 69; RESP 18; TEMP 97.9; O2SAT 100
[2025-02-18] MEDS: INSULIN LISPRO 100 UNIT/ML INSULN.PEN MULTI-DOSE SQ SCH (09:00)
[2025-02-18 10:00] VITALS: BP 104/56; PULSE 80; RESP 16; TEMP 98.4; O2SAT 98
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
--- NOTE | 2025-02-18 18:03 | PROGRESS NOTE ---
Progress Note Dictate Providers to CC ~ Subjective Subjective: He did undergo amputation with Dr. Das. He is stable in the postoperative setting. Objective Objective: Pleasant middle-aged male who currently looks stable Lungs clear to auscultation bilaterally Heart regular rate and rhythm Abdomen soft and nontender Right foot with partial 5th ray amputation - surgical incision looks good Erythema has improved significantly at dorsal aspect Lab Results: 02/17/2552602/17/25526 Problem\Assessment\Plan Additional Plan Right diabetic foot infection with evidence of osteomyelitis involving the 5th toe s/p partial 5th ray amputation MSSA on culture Wound care and offloading DC IV antibiotics on discharge Augmentin for a week to finish treating soft tissue SEN GARCIA MD Feb 18, 2025 18:03
[2025-02-18 18:30] VITALS: BP 105/57; PULSE 78; RESP 16; TEMP 97.3; O2SAT 100
[2025-02-18 22:00] VITALS: BP 123/63; PULSE 104; RESP 16; TEMP 97.5; O2SAT 94
[2025-02-19 05:00] VITALS: BP 115/65; PULSE 70; RESP 15; TEMP 97.6; O2SAT 99
[2025-02-19 09:23] LABS: MEAN PLATELET VOLUME 6.3 FL (7.4-10.4); RED CELL DISTRIBUTION WIDTH 14.0 % (11.5-14.5)
[2025-02-19 09:50] LABS: CREATININE 0.97 MG/DL (0.60-1.10); TOTAL CARBON DIOXIDE 32.2 MMOL/L (24-32); eCRCL 78 ML/MIN; eGFR 80 ML/MIN
[2025-02-19 10:00] VITALS: BP 100/57; PULSE 65; RESP 16; TEMP 97.8; O2SAT 100
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
[2025-02-19] MEDS: amox tr/potassium clavulanate 875/125mg TAB PO SCH (17:45)
--- NOTE | 2025-02-19 17:56 | PATHOLOGY REPORT ---
[facility] [address] [place] [address] SURGICAL PATHOLOGY REPORT CaseNumber: [id number] Surgeon:NATY Mandel CLINICAL INFORMATION CLINICAL INFORMATION: Not provided. DIAGNOSIS DIAGNOSIS: TOE, RIGHT FIFTH; AMPUTATION - VIABLE SKIN, VASCULAR, AND SOFT TISSUE MARGINS. - VIABLE BONE MARROW AT RESECTION MARGIN. - ULCERATED SKIN WITH NECROSIS OF SUBCUTANEOUS SOFT TISSUE. - ACUTE OSTEOMYELITIS MICROSCOPIC DESCRIPTION MICROSCOPIC DESCRIPTION: 4 H&E-stained slides are reviewed. They show viable skin, vascular, and sof t tissue margins without evidence of inflammation or necrosis. The bone marrow shows rare hematopoiet ic elements and fat. The area of ulceration shows necrotic skin with necrosis extending from the epid ermis and into the deep subcutaneous tissue. The area of ulceration shows fat necrosis and degenerati ng skeletal muscle fibers. Additionally, there is acute inflammation within the marrow spaces and on the bone consistent with acute osteomyelitis. GROSS DESCRIPTION GROSS DESCRIPTION: Received in a container of formalin labeled with the patient's name, number, and " right fifth ray" is a portion of toe which measures 6.5 cm long by 3 cm in diameter. There is a 5 x 2 .5 cm blackened area of ulceration which appears to extend to the skin resection margin. Sections are submitted as follows:A1) Skin at resection marginA2) Area of ulcerationA3) Bone beneath area of ulce rationA4) Bone resection margin Electronically signed by: Montez Goode, 02/19/2025 5:28:00 PM
[2025-02-19 18:00] VITALS: BP 142/78; PULSE 100; RESP 17; TEMP 99; O2SAT 97
[2025-02-19 22:00] VITALS: BP 146/84; PULSE 106; RESP 16; TEMP 98.8; O2SAT 98
[2025-02-20 06:00] VITALS: BP 129/69; PULSE 90; RESP 17; TEMP 98.3; O2SAT 99
[2025-02-20 10:00] VITALS: BP 140/76; PULSE 96; RESP 17; TEMP 99.3; O2SAT 99
[2025-02-20] MEDS ORDERED: HYDR-3965 PO (10:45)
[2025-02-20] MEDS ORDERED: AMOX-419 PO (17:05)
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
--- NOTE | 2025-03-17 10:01 | OPERATIVE REPORT ---
DATE OF SURGERY: 02/17/2025 DICTATING PHYSICIAN: Marty Das DPM PREOPERATIVE DIAGNOSIS: Infected wound and osteomyelitis to the right 5th metatarsal and 5th toe. POSTOPERATIVE DIAGNOSIS: Infected wound and osteomyelitis to the right 5th metatarsal and 5th toe. PROCEDURE: 1. Right partial 5th ray resection. POSITION: Supine. ANESTHESIA: General with local block. HEMOSTASIS: None. ESTIMATED BLOOD LOSS: 20 mL. COMPLICATIONS: None. FINDINGS: Soft bone to the 5th metatarsal and the proximal phalanx of the right foot, wound that does probe to bone with purulence and surrounding erythema. COMPLICATIONS: None. SPECIMENS: Bone, soft tissue right partial 5th ray resection. CLINICAL INDICATIONS: The patient presented to [facility] with an infected ulcer sub 5th met head that does probe to bone. MRI was positive for osteomyelitis. Lengthy discussion had with the patient in regards to nonsurgical treatment with IV antibiotics and local wound care. Discussed with the patient possibility of doing a bone biopsy to confirm diagnosis of osteomyelitis and discussed partial 5th ray resection. Due to the severity of the infection and the patient's growing concern over it, we decided to proceed with 5th ray resection. DESCRIPTION OF PROCEDURE: The patient was seen in the holding room. Planned procedure was explained to the patient in detail along with all the risks and benefits. The patient consented to the planned procedure and correct limb was signed. The patient was taken to the operating room and placed on the operating table in supine position. Anesthesia was administered and the right lower extremity was scrubbed and draped in the normal sterile fashion. Attention was then directed to the right lateral foot where there was a wound that probes to bone and surrounding erythema with purulent drainage. A transverse fish-mouth incision was made over the top of the neck area of the 5th metatarsal. The incision was taken down to the level of bone utilizing sharp dissection and the 5th toe was disarticulated at the 5th MPJ. The bone was noted to be soft to the proximal phalanx and the 5th metatarsal. A sagittal saw was then utilized to make a cut through the shaft of the 5th metatarsal, making sure to bevel the cut plantarly and laterally. A 15-blade was used to sharply excise all nonviable tissue. The site was then copiously irrigated with pulse lavage containing vancomycin, hydrogen peroxide, Betadine, and Irrisept. At this point in time, the deep tissue was closed with 3-0 Vicryl and the skin was closed with 3-0 nylon. Betadine sterile dressing was applied along with a postop shoe. The patient tolerated anesthesia and procedure well and was transferred from the operating room to the recovery room in stable condition. Marty Das DPM TID: [id number] RECEIPT: [id number] NEHEMIAS/JUSTINE
== END 2025-02-20 10:45 | disposition home or self-care (01) | DRG 314 ==
LOC: ER 13:30 → ED HOLD 02-12 00:48 → EDBEDREQ 02-12 01:19 → ORTHO 4S 02-12 01:52
PROVIDERS: ADMIT Internal Medicine; ATTEND Internal Medicine
PROC: 0Y6X0Z0 Detachment at Right 5th Toe, Complete, Open Approach (ICD-10-PCS; principal; 2025-02-14)
DX: L03.115 Cellulitis of right lower limb (principal); E11.42 Type 2 diabetes mellitus with diabetic polyneuropathy; N17.0 Acute kidney failure with tubular necrosis; E11.51 Type 2 diabetes mellitus with diabetic peripheral angiopathy without gangrene; Z83.3 Family history of diabetes mellitus; Z96.651 Presence of right artificial knee joint; Z87.891 Personal history of nicotine dependence; S20.213A Contusion of bilateral front wall of thorax, initial encounter; V89.2XXA Person injured in unspecified motor-vehicle accident, traffic, initial encounter; Y93.89 Activity, other specified; Y92.89 Other specified places as the place of occurrence of the external cause; Y99.8 Other external cause status; E11.69 Type 2 diabetes mellitus with other specified complication; M86.8X7 Other osteomyelitis, ankle and foot; F31.9 Bipolar disorder, unspecified; E86.0 Dehydration
CPT/HCPCS: 36415; 71046; 73630; 73701; 73718; 80048; 80053; 80061; 80076; 80178; 80202; 80305; 81001; 81003; 82570; 82948; 83036; 83605; 83735; 83930; 83935; 84100; 84132; 84145; 84156; 84300; 84540; 85025; 85610; 85651; 85730; 87040; 87070; 87075; 87077; 87081; 87102; 87186; 87207; 93005; 93922; 93925; 97116; 97161; 97530; 99285; A4618; A6222; A6253; A6258; A6402; A6446; A6449; A7000; G0378; J0131; J0360; J0690; J0696; J1171; J1644; J1815; J2003; J2250; J2270; J2405; J2704; J3010; J3373; J3375; J3490; J7030; J7070; J7120; Q9967

== ENCOUNTER 2025-03-08 10:22 | Emergency (ER) | payer MEDICAID ==
[~2025-03-08] VITALS: Ht 182.9 cm; Wt 80.6 kg
[~2025-03-08 10:22] MED LIST: ATOR40TA72; GABA-1555 PO; HYDR-3965 PO; LANTUS SQ; LITH300T5 PO; LUMA21CA PO; NOVLG SQ
[2025-03-08 10:51] VITALS: BP 142/72; PULSE 65; RESP 18; TEMP 97.5; O2SAT 100
--- NOTE | 2025-03-08 11:31 | Physician Documentation ---
History of Present Illness ~ Chief Complaint: Suture Removal Stated Complaint: WOUND CARE Time Seen by MD: 11:23 HPI Patient is seen today with complaints of needing sutures removed after a toe amputation from the right foot of his 5th toe. Patient states the surgery was 3-4 weeks ago and he has not done any postop follow up. Patient states he was unable to get out of bed. He denies any fevers or chills and has no other concern or complaint at this time. Tetanus Within 5 Years: Yes Medication Reconciliation Allergies: Coded Allergies: No Known Allergies (Unverified , 03/08/25) Scheduled Gabapentin (Gabapentin), 1 TAB PO BID, (Reported) [place] Carbonate ([place] Carbonate), 900 MG PO HS, (Reported) Lumateperone Tosylate (Caplyta), 1 CAP PO DAILY, (Reported) Scheduled PRN Hydrocodone Bit/Acetaminophen 5/325 MG ([place] 5/325 MG), 1 TAB PO Q6H PRN for pain Miscellaneous Medications Atorvastatin Calcium (Atorvastatin Calcium), (Reported) Insulin Aspart (Novolog), SQ, (Reported) Insulin Glargine,Hum.rec.anlog* (Lantus*), SQ, (Reported) Past Medical History Patient History: FH: diabetes mellitus (dad, mom, sisters and brother) Review of Systems Constitutional: Denies: chills, fever, weakness Eyes: Denies: pain, blurred vision ENT: Denies: ear pain, nose pain, throat pain, mouth pain Respiratory: Denies: cough, shortness of breath Cardiovascular: Denies: chest pain, palpitations Gastrointestinal: Denies: abdominal pain, nausea, vomiting Genitourinary: Denies: burning, dysuria Male Genitalia: Denies: penile discharge, testicular pain Neurological: Denies: headache, dizziness Musculoskeletal: Denies: pain, swelling Integumentary: Denies: rash, lesions Allergic/Immunologic: Denies: hives, itching Hematologic/Lymphatic: Denies: no symptoms reported Psychiatric: Denies: depression, anxiety Physical Exam Vital Signs: Temperature: 97.5, Source: Oral, Heart Rate: 65, Respiratory Rate: 18, BP: 142/72, Pulse Oximetry: 100, Weight: 80.600 Oxygen Flow Rate: 0 Physical Exam General: Awake and Alert, no acute distress. HEENT: Conjunctiva pink, Sclera clear, Mucus Membranes moist. Neck: Supple without masses and tenderness. Resp: Unlabored. Lungs clear to auscultation bilaterally. Heart: Regular Rate and rhythm, normal S1 and S2 without murmur, rub or gallop. Extremities: No cyanosis,clubbing or edema. Skin: Patient on exam does have well-healed postsurgical wound of the lateral aspect of his right foot with sutures in place. Sutures appear to have been in place for far too long and part of them are grown into the skin. I do not appreciate any sign of infection or erythema or purulent drainage. Procedure Suture/Staple Removal : Procedure Note Procedure note: Patient did have six sut[address] that were very overgrown and difficult to remove. The sutures were removed by myself and by Madi director medical surgical. Patient tolerated well. Progress Results/Orders Results/Orders Vital Signs 03/08/25 10:51 Temp 97.5 Pulse 65 Resp 18 B/P (MAP) 142/72 Pulse Ox 100 O2 Flow Rate 0 Medical Decision Making Findings Patient is seen today with complaints of needing sutures removed after a toe amputation from the right foot of his 5th toe. Patient states the surgery was 3-4 weeks ago and he has not done any postop follow up. Patient states he was unable to get out of bed. He denies any fevers or chills and has no other concern or complaint at this time. Patient did have sutures removed today by myself and by Madi. Patient tolerated well. Patient will follow up with surgeon for postop follow up. Return to ED with any worsening, concerning or changing symptoms. Departure Disposition: 01 HOME / SELF CARE / HOMELESS Impression: Primary Impression: Wound Additional Impression: Visit for suture removal Condition: Stable Discharge Instructions: Suture Removal, Care After Additional Instructions: Patient did have sutures removed today by myself and by Madi. Patient suzie ated well. Patient will follow up with surgeon for postop follow up. Return to ED with any worsening, concerning or changing symptoms. Referrals: NO PRIMARY CARE PROVIDER (PCP) Signature Scribe Signature: No scribe Attestation: No scribe SEN FAIRCHILD PAC Mar 08, 2025 11:31
== END 2025-03-08 11:45 | disposition home or self-care (01) ==
LOC: ER 10:22
DX: S91.114D Laceration without foreign body of right lesser toe(s) without damage to nail, subsequent encounter (principal); X58.XXXD Exposure to other specified factors, subsequent encounter
CPT/HCPCS: 99281

== ENCOUNTER 2025-06-06 03:35 | Emergency (ER) | payer MEDICAID ==
[~2025-06-06] VITALS: Ht 182.9 cm; Wt 75.0 kg
[~2025-06-06 03:35] MED LIST changes: -HYDR-3965 PO
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
[2025-06-06 04:19] VITALS: BP 154/90; PULSE 88; RESP 16; O2SAT 99
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
== END 2025-06-06 04:21 ==
LOC: ER 03:37
DX: Z04.1 Encounter for examination and observation following transport accident (principal); V49.40XA Driver injured in collision with unspecified motor vehicles in traffic accident, initial encounter; Y93.89 Activity, other specified; Y92.410 Unspecified street and highway as the place of occurrence of the external cause; Y99.8 Other external cause status
CPT/HCPCS: 71045; 99283